=== PATIENT | female | born 1990 | race Caucasian/White ===

== ENCOUNTER 2021-05-19 16:44 | Inpatient (IN) | payer SELFPAY ==
[2021-05-19] MEDS ORDERED: ONDANSETRON 4 MG/2 ML VIAL ONE ×2 (17:40→19:22)
[2021-05-19] MEDS ORDERED: MORPHINE 4 MG/ML SYR ONE ×2 (17:40→19:22)
[2021-05-19] MEDS ORDERED: NA CHLORIDE 0.9% 1,000 ML ONE (17:41)
[2021-05-19 17:48] LABS: Absolute Lymphocytes (CBC) 2.1 K/uL (0.7-4.9); Basophils % 0.4 % (0-1.3); Hematocrit 39.3 % (36.0-45.0); Lymphocytes % 21.3 % (15.3-44.8); MPV 9.9 fL (7.6-11.3); RBC Red Blood Cell Count 4.86 M/uL (3.86-4.86)
[2021-05-19 17:52] LABS: Urine Blood Trace-intact (Negative); Urine Glucose Negative (Negative); Urine Protein Negative (Negative); Urine Specific Gravity >=1.030 (1.005-1.030)
[2021-05-19 17:59] LABS: ALT/SGPT 29 U/L (12-78); AST/SGOT 9 U/L (15-37); Albumin 3.5 g/dL (3.4-5.0); Alkaline Phosphatase 82 U/L (45-117); BUN Blood Urea Nitrogen 13 mg/dL (7-18); Bicarbonate 28 mmol/L (21-32); Bilirubin Direct < 0.1 mg/dL (0-0.2); Bilirubin Total 0.2 mg/dL (0.2-1.0); Glucose Level 115 mg/dL (74-106); Lipase 60 U/L (73-393); Potassium 3.4 mmol/L (3.5-5.1); Protein, Total 7.4 g/dL (6.4-8.2); Sodium Level 140 mmol/L (136-145)
[2021-05-19 19:02] LABS: Urine Bacteria >50 /HPF (<20); Urine RBC <5 /HPF (NONE SEEN)
[2021-05-19 19:03] LABS: Calcium Oxalate Crystals- Ur FEW (NONE SEEN)
--- NOTE | 2021-05-19 19:05 | RAD REPORT ---
EXAM DESCRIPTION: CT - Abdomen Pelvis W Contrast - 05/19/2021 6:38 pm CLINICAL HISTORY: ABD PAIN COMPARISON: No comparisons TECHNIQUE: Biphasic, helical CT imaging of the abdomen and pelvis was performed following 100 ml non -ionic IV contrast. No oral contrast administered. All CT scans are performed using dose optimization technique as appropriate and may include automated exposure control or mA/KV adjustment according to patient size. FINDINGS: No suspicious findings in the lung bases. The liver, spleen, and pancreas show no focal findings. Mild diffuse fatty infiltration is present in the liver with sparing near the gallbladder fossa. No gallbladder or biliary tree abnormality. Galls tones can be occult on CT imaging. Symmetric renal function is seen with no hydronephrosis or suspicious renal mass. No pyelonephritis o r acute parenchymal process. No bladder abnormalities. No adrenal abnormalities. No uterine or ovaria n suspicious finding. No dilated bowel loops or bowel wall thickening. Appendix is normal. No free air, free fluid or infla mmatory stranding. No hernia, mass or bulky lymphadenopathy. The left lower quadrant deep subcutaneo us fat abutting the abdominal wall a 2.4 centimeter rounded soft tissue mass is present. This is yuniel g the left lateral margin of the prior scar. History does not indicate pain in this locatio n. This may be scarring or suture granuloma related to the prior . There is no abdominal wal l hernia at this site. Correlation is needed with any localizing symptoms. No suspicious bony findings. IMPRESSION: Contrast enhanced CT abdomen and pelvis showing no acute or emergent finding. Mild diffuse fatty infiltration of the liver. Small round soft tissue mass left lower quadrant subcutaneous fatty tissues is at the left lateral ma rgin of the scar and is probably a postsurgical suture granuloma or area of scarring.
[2021-05-19] MEDS ORDERED: FAMOTIDINE 20 MG/2 ML VIAL IV ONE (20:06)
--- NOTE | 2021-05-19 20:44 | RAD REPORT ---
EXAM DESCRIPTION: US - Abdomen Exam Limited - 05/19/2021 8:26 pm CLINICAL HISTORY: EPIGASTRIC PAIN COMPARISON: Abdomen Pelvis W Contrast dated 05/19/2021 FINDINGS: Multiple variably sized gallstones are present. A small amount of sludge is seen. Gallblad robert wall is upper normal to minimally thickened. No pericholecystic fluid seen. No common duct stone or biliary tree dilatation identified. IMPRESSION: Multi stone cholelithiasis with gallbladder wall upper normal to slightly thickened. No biliary tree abnormality.
[2021-05-19] MEDS ORDERED: HYDROMORPHONE HCL 0.5 MG/0.5 ML INJ ONE ×2 (21:30→22:29)
--- NOTE | 2021-05-19 21:38 | ER ---
Nurse's Notes [facility] Name: Archana Carcamo Age: 31 yrs Sex: Female : 1990 Arrival Date: 05/19/2021 Time: 16:47 Bed 26 Private MD: Diagnosis: Acute cholecystitis Presentation: 05/19 16:58 Chief complaint: Patient states: pt complains of stomach pain. pt went to an er last tw2 week and ruled out cardiac related issue. pt states she had went to GI specialist but they hadn't started treatment yet. pt states the pain has gotten worse and is now 10/10. Coronavirus screen: At this time, the client does not indicate any symptoms associated with coronavirus-19. Ebola Screen: Patient negative for fever greater than or equal to 101.5 degrees Fahrenheit, and additional compatible Ebola Virus Disease symptoms Patient denies exposure to infectious person. Patient denies travel to an Ebola-affected area in the 21 days before illness onset. No symptoms or risks identified at this time. Initial Sepsis Screen: Does the patient meet any 2 criteria?. Risk Assessment: Do you want to hurt yourself or someone else? Patient reports no desire to harm self or others. Onset of symptoms was May 19, 2021. 16:58 Method Of Arrival: Ambulatory tw2 16:58 Acuity: AARTI 3 tw2 17:10 Initial Sepsis Screen: Does the patient have a suspected source of infection? No. tw2 Patient's initial sepsis screen is negative. Triage Assessment: 17:01 General: Appears comfortable, ill, Behavior is calm, cooperative, appropriate for age. tw2 Pain: Complains of pain in right upper quadrant and left upper quadrant Pain radiates to back and left chest. GI: Reports upper abdominal pain. 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 - Social history:: Smoking status: Patient reports the use of cigarette tobacco products, smokes one-half pack cigarettes per day, Patient uses alcohol, weekly. Screenin:08 Abuse screen: Denies threats or abuse. Denies injuries from another. Nutritional tw2 screening: No deficits noted. Tuberculosis screening: No symptoms or risk factors identified. Fall Risk None identified. Assessment: 17:36 General: Appears distressed, obese, well groomed, Behavior is cooperative, anxious, jh5 crying. Pain: Complains of pain in epigastric area. Neuro: Oriented to person, place, time, situation, Appropriate for age Speech is normal. Cardiovascular: No deficits noted. Capillary refill < 3 seconds Patient's skin is warm and dry. Respiratory: Airway is patent Trachea midline Respiratory effort is even, unlabored, Respiratory pattern is regular, symmetrical. GI: Bowel sounds present X 4 quads. Abd is soft Abdomen is tender to palpation. 19:27 Reassessment: Pt continues to scream, moan, and open her curtain screaming for staff. jh5 Pt says she is crying, however, there are no tears. Pt ripped off bp cuff and threw it on the ground. Pt educated on her imaging this far, and provided additional pain medication, educated we will continue care with ultrasound and someone should be by shortly. 20:16 Reassessment: Pt continues to moan, and move all around, guarding upper abdomen. Pt em states; "I'm dying!" Pt educated she is not dying and thankfully her vital signs are perfectly stable and within normal limits. Pt also updated on results so far and informed on what is next in her process here. Pt pending ultrasound at this time. Mother at bedside. Vital Signs: 17:04 BP 141 / 90; Pulse 102; Resp 18; Temp 98; Pulse Ox 100% ; Weight 113.4 kg; Height 5 ft. tw2 5 in. (165.10 cm); Pain 10/10; 19:30 Pulse 68; Resp 18; Pulse Ox 99% ; jh5 20:15 BP 136 / 88; Pulse 66; Resp 18; Pulse Ox 100% ; em 21:22 BP 134 / 86; Pulse 71; Resp 18; Pulse Ox 99% on R/A; em 17:04 Body Mass Index 41.60 (113.40 kg, 165.10 cm) tw2 ED Course: 16:47 Patient arrived in ED. as 17:01 Triage completed. tw2 17:04 Arm band placed on left wrist. tw2 17:08 Patient has correct armband on for positive identification. Bed in low position. Call tw2 light in reach. Side rails up X2. 17:09 Anthony Lantigua NP is PHCP. pm1 17:09 Juan Conde MD is Attending Physician. pm1 17:28 Archana Padgett, JACKIE is Primary Nurse. jh5 17:36 Inserted saline lock: 20 gauge in right antecubital area, using aseptic technique. jh5 17:39 Lipase Sent. jh5 17:39 Hepatic Function Sent. jh5 17:39 CBC with Diff Sent. jh5 17:39 Basic Metabolic Panel Sent. jh5 18:38 CT Abd/Pelvis - IV Contrast Only In Process Unspecified. EDMS 20:26 US Abdomen Limited In Process Unspecified. EDMS 21:37 Too King MD is Hospitalizing Provider. pm1 Administered Medications: 17:52 Drug: NS 0.9% 1000 ml Route: IV; Rate: 1000 ml; Site: right antecubital; jh5 17:52 Drug: morphine 4 mg Route: IVP; Site: right antecubital; jh5 17:52 Drug: Zofran (Ondansetron) 4 mg Route: IVP; Site: right antecubital; jh5 19:26 Drug: morphine 4 mg Route: IVP; Site: right antecubital; jh5 19:27 Drug: Zofran (Ondansetron) 4 mg Route: IVP; Site: right antecubital; jh5 20:14 Drug: Pepcid (famotidine) 20 mg Route: IVP; Site: right antecubital; em 21:35 Drug: Dilaudid (HYDROmorphone) 0.5 mg Route: IVP; Site: right antecubital; em 21:56 Follow up: Response: No adverse reaction; Marked relief of symptoms; Pain is decreased em 21:56 Drug: Mefoxin (cefOXitin) 1 grams Route: IVPB; Infused Over: 30 mins; Site: right em antecubital; 22:33 Follow up: IV Status: Completed infusion; IV Intake: 50ml em 22:31 Drug: Dilaudid (HYDROmorphone) 0.5 mg Route: IVP; Site: right antecubital; em 05/20 01:35 Drug: fentaNYL (PF) 25 mcg Route: IVP; Site: right antecubital; em Intake: 05/19 22:33 IV: 50ml; Total: 50ml. em Outcome: 21:37 Decision to Hospitalize by Provider. pm1 05/20 20:31 Patient left the ED. bb Signatures: Dispatcher [employer] Ankush Riddle, RN RN em Marian Wesley Brenda RN RN bb Anthony Lantigua, CAROLYN POULTRY CLEANER pm1 Tiesha Vides RN RN tw2 Archana Padgett RN RN jh5
--- NOTE | 2021-05-19 21:38 | EDPHYS ---
Physician Documentation [facility] Name: Archana Carcamo Age: 31 yrs Sex: Female : 1990 Arrival Date: 05/19/2021 Time: 16:47 Bed 26 Private MD: ED Physician Juan Conde HPI: 05/19 17:58 This 31 yrs old Female presents to ER via Ambulatory with complaints of pm1 Abdominal Pain. 17:58 The patient presents with abdominal pain in the upper abdomen. pm1 17:58 Onset: The symptoms/episode began/occurred 1 month(s) ago. The symptoms do not radiate. pm1 Associated signs and symptoms: Pertinent negatives: nausea and vomiting, chest pain, diarrhea, dysuria, fever, shortness of breath. The symptoms are described as sharp. Modifying factors: the symptoms are aggravated by food. Severity of pain: in the emergency department the pain is actually worse. The patient has not experienced similar symptoms in the past. The patient has been recently seen by a physician: He was seen in the [facility] last week for same complaint and patient had blood work EKG and chest x-ray. She was discharged to follow-up with GI. Patient saw Dr. Rivera today for evaluation of her abdominal pain. Patient was given orders for outpatient imaging. Patient reports imaging will be done towards the end of the month and she felt she could not wait until then due to the severity of her pain. 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 - Social history:: Smoking status: Patient reports the use of cigarette tobacco products, smokes one-half pack cigarettes per day, Patient uses alcohol, weekly. ROS: 17:58 Constitutional: Negative for fever, chills, and weight loss, Cardiovascular: Negative pm1 for chest pain, palpitations, and edema, Respiratory: Negative for shortness of breath, cough, wheezing, and pleuritic chest pain. 17:58 Back: Negative for injury and pain, MS/Extremity: Negative for injury and deformity, Skin: Negative for injury, rash, and discoloration, Neuro: Negative for headache, weakness, numbness, tingling, and seizure. 17:58 Abdomen/GI: Positive for abdominal pain, Negative for nausea, vomiting, and diarrhea, constipation. Exam: 17:58 Constitutional: This is a well developed, well nourished patient who is awake, alert, pm1 and in no acute distress. Head/Face: Normocephalic, atraumatic. 17:58 Back: No spinal tenderness. No costovertebral tenderness. Full range of motion. Skin: Warm, dry with normal turgor. Normal color with no rashes, no lesions, and no evidence of cellulitis. MS/ Extremity: Pulses equal, no cyanosis. Neurovascular intact. Full, normal range of motion. 17:58 ENT: Exam is negative for acute changes, Mouth: Lips: normal, moist, Oral mucosa: normal, pink and intact, moist. 17:58 Cardiovascular: Exam negative for acute changes, Rate: normal, Rhythm: regular, Pulses: no pulse deficits are appreciated. 17:58 Respiratory: Exam negative for acute changes, respiratory distress, shortness of breath, Breath sounds: are clear throughout. 17:58 Abdomen/GI: Inspection: obese Palpation: soft, in all quadrants, mild abdominal tenderness, in the epigastric area. 17:58 Neuro: Exam negative for acute changes, Orientation: is normal, Mentation: is normal, Motor: moves all fours. Vital Signs: 17:04 BP 141 / 90; Pulse 102; Resp 18; Temp 98; Pulse Ox 100% ; Weight 113.4 kg; Height 5 ft. tw2 5 in. (165.10 cm); Pain 10/10; 19:30 Pulse 68; Resp 18; Pulse Ox 99% ; jh5 20:15 BP 136 / 88; Pulse 66; Resp 18; Pulse Ox 100% ; em 21:22 BP 134 / 86; Pulse 71; Resp 18; Pulse Ox 99% on R/A; em 17:04 Body Mass Index 41.60 (113.40 kg, 165.10 cm) tw2 MDM: 17:18 Patient medically screened. pm1 21:03 Counseling: I had a detailed discussion with the patient and/or guardian regarding: the pm1 historical points, exam findings, and any diagnostic results supporting the discharge/admit diagnosis, lab results, radiology results, the need for further work-up and treatment in the hospital. 21:34 Data reviewed: vital signs. Data interpreted: Pulse oximetry: on room air is 99 %. pm1 Interpretation: normal. 05/19 17:18 Order name: Basic Metabolic Panel; Complete Time: 18:26 pm1 05/19 17:18 Order name: CBC with Diff; Complete Time: 17:52 pm1 05/19 17:18 Order name: Hepatic Function; Complete Time: 18:26 pm1 05/19 17:18 Order name: Lipase; Complete Time: 18:26 pm1 05/19 17:51 Order name: Urine Dipstick-Ancillary; Complete Time: 17:54 EDMN 05/19 17:51 Order name: Urine Microscopic Only; Complete Time: 19:20 pm1 05/19 21:28 Order name: SARS-COV-2 RT PCR; Complete Time: 00:10 EDMN 05/19 22:33 Order name: Basic Metabolic Panel EDMN 05/19 22:33 Order name: Basic Metabolic Panel EDMN 05/19 22:33 Order name: CBC with Automated Diff EDMN 05/19 22:33 Order name: CBC with Automated Diff EDMN 05/19 22:33 Order name: Lipase EDMN 05/19 22:33 Order name: Lipase EDMN 05/19 17:36 Order name: CT Abd/Pelvis - IV Contrast Only; Complete Time: 19:20 pm1 05/19 19:21 Order name: US Abdomen Limited; Complete Time: 20:47 pm1 05/19 22:33 Order name: Liver (Hepatic) Function EDMN 05/19 22:33 Order name: Liver (Hepatic) Function EDMN 05/20 15:46 Order name: Urine --Ancillary (enter results) [facility] 05/20 16:43 Order name: Urine --Ancillary EDMN 05/19 17:18 Order name: IV Saline Lock; Complete Time: 17:36 pm1 05/19 17:18 Order name: Labs collected and sent; Complete Time: 17:36 pm1 05/19 17:36 Order name: Urine Dipstick-Ancillary (obtain specimen); Complete Time: 17:52 pm1 05/19 17:36 Order name: Urine Test (obtain specimen); Complete Time: 17:52 pm1 05/19 22:33 Order name: NPO EDMS Administered Medications: 17:52 Drug: NS 0.9% 1000 ml Route: IV; Rate: 1000 ml; Site: right antecubital; 5 17:52 Drug: morphine 4 mg Route: IVP; Site: right antecubital; 5 17:52 Drug: Zofran (Ondansetron) 4 mg Route: IVP; Site: right antecubital; 5 19:26 Drug: morphine 4 mg Route: IVP; Site: right antecubital; 5 19:27 Drug: Zofran (Ondansetron) 4 mg Route: IVP; Site: right antecubital; 5 20:14 Drug: Pepcid (famotidine) 20 mg Route: IVP; Site: right antecubital; em 21:35 Drug: Dilaudid (HYDROmorphone) 0.5 mg Route: IVP; Site: right antecubital; em 21:56 Follow up: Response: No adverse reaction; Marked relief of symptoms; Pain is decreased em 21:56 Drug: Mefoxin (cefOXitin) 1 grams Route: IVPB; Infused Over: 30 mins; Site: right em antecubital; 22:33 Follow up: IV Status: Completed infusion; IV Intake: 50ml em 22:31 Drug: Dilaudid (HYDROmorphone) 0.5 mg Route: IVP; Site: right antecubital; em 1116 01:35 Drug: fentaNYL (PF) 25 mcg Route: IVP; Site: right antecubital; em Disposition: 07:06 Co-signature as Attending Physician, Juan Conde MD I agree with the assessment and rn plan of care. Attestation: The patient's history, exam findings, diagnostics, and a summary of any interventions or procedures was reviewed in detail with Anthony Lantigua NP. Disposition Summary: 05/19/21 21:37 Hospitalization Ordered Hospitalization Status: Inpatient Admission pm1 Provider: Too King pmKelechi Condition: Stable pm1 Problem: new pm1 Symptoms: have improved pm1 Bed/Room Type: Standard pm1 Location: Telemetry/MedSurg (Inpatient)(05/20/21 19:30) cg Room Assignment: 422(05/20/21 20:24) cg Diagnosis - Acute cholecystitis pm1 Discharge Instructions: - Discharge Summary Sheet [facility] Forms: - Medication Reconciliation Form pm1 - SBAR form jh5 Signatures: Dispatcher [employer] EDMS Ankush Pan, RN RN Juan Santacruz MD MD rn Garcia, Cindy, RN RN Anthony Lantigua, LONG TERM ACUTE CARE REGISTERED NURSE LONG TERM ACUTE CARE REGISTERED NURSE pm1 Tiesha Vides RN RN 2 Hollie Hoang kj1 Archana Padgett RN RN 5 Corrections: (The following items were deleted from the chart) 05/19 21:28 21:15 CORONAVIRUS+MR.LAB.BRZ ordered. [facility] 22:03 21:37 Telemetry/MedSurg (Inpatient) pm1 cg 22:03 21:37 pm1 05/20 15:46 15:45 Urine Test ordered. kj1 kj1 19:30 05/19 22:03 [facility] ER HOLD cg cg 05/20 19:30 05/19 22:03 ERHOLD- cg 05/20 20:24 19:30 423 cg
[2021-05-19] MEDS ORDERED: CEFOXITIN SODIUM 1 GM/VIAL ONE (21:50)
[2021-05-19] MEDS ORDERED: NA CHLORIDE 0.9% 100 ML ONE (21:50)
[2021-05-20] MEDS ORDERED: NS 0.9% IV SCH ×2
[2021-05-20] MEDS ORDERED: NOREPINEPHRINE IV SCH ×2
[2021-05-20] MEDS: D5 0.45 NS 1,000 ML IV SCH ×4 (00:42→21:46)
[2021-05-20 01:16] VITALS: BMI 41.5
[2021-05-20] MEDS ORDERED: FENTANYL CITR 100 MCG/2 ML ONE ×6 (01:20→18:52)
[2021-05-20] MEDS ORDERED: FENTANYL CITR 100 MCG/2 ML IV ONE (01:24)
[2021-05-20] MEDS ORDERED: CEFOXITIN SODIUM 1 GM/VIAL IVPB SCH (04:00)
[2021-05-20] MEDS ORDERED: CEFOXITIN/NS 1gm 1 GM/50 ML BAG IV SCH (04:00)
[2021-05-20 04:13] LABS: Absolute Lymphocytes (CBC) 1.2 K/uL (0.7-4.9); Basophils % 0.4 % (0-1.3); Lymphocytes % 7.5 % (15.3-44.8); MPV 10.2 fL (7.6-11.3); RBC Red Blood Cell Count 4.64 M/uL (3.86-4.86)
[2021-05-20] MEDS ORDERED: CEFOXITIN SODIUM 1 GM/VIAL ONE (05:09)
[2021-05-20] MEDS ORDERED: NA CHLORIDE 0.9% 50 ML ONE (05:10)
[2021-05-20 05:12] LABS: ALT/SGPT 25 U/L (12-78); AST/SGOT 7 U/L (15-37); Albumin 3.2 g/dL (3.4-5.0); Alkaline Phosphatase 79 U/L (45-117); BUN Blood Urea Nitrogen 7 mg/dL (7-18); Bicarbonate 27 mmol/L (21-32); Bilirubin Direct 0.1 mg/dL (0-0.2); Bilirubin Total 0.4 mg/dL (0.2-1.0); Glucose Level 133 mg/dL (74-106); Lipase 49 U/L (73-393); Potassium 4.1 mmol/L (3.5-5.1); Sodium Level 139 mmol/L (136-145)
[2021-05-20] MEDS: FENTANYL CITR 100 MCG/2 ML IV PRN ×3 (05:20→14:48)
[2021-05-20] MEDS ORDERED: ONDANSETRON 4 MG/2 ML VIAL ONE ×3 (07:56→18:50)
[2021-05-20] MEDS ORDERED: MORPHINE 4 MG/ML SYR ONE ×2 (07:56→11:46)
[2021-05-20] MEDS: MORPHINE 4 MG/ML SYR IV PRN ×2 (07:57→11:48)
[2021-05-20] MEDS: ONDANSETRON 4 MG/2 ML VIAL IV PRN ×2 (07:57→14:48)
[2021-05-20] MEDS ORDERED: D5 0.45 NS 1,000 ML IV ONE (09:39)
[2021-05-20] MEDS: CEFOXITIN/NS 1gm 1 GM/50 ML BAG IV SCH ×3 (11:06→18:00)
[2021-05-20] MEDS ORDERED: Ringers Lactate 1,000 ML IV ONE (16:16)
[2021-05-20] MEDS ORDERED: ROCURONIUM 50 MG/5 ML VIAL IV ONE (18:03)
[2021-05-20] MEDS ORDERED: propofoL 200 MG/20 ML VIAL IV ONE (18:03)
[2021-05-20] MEDS ORDERED: LIDOCAINE 1% MPF 5 ML VIAL ONE (18:03)
[2021-05-20] MEDS ORDERED: Phenylephrine HCl 10 MG/ML 1 ML VIAL ONE (18:07)
[2021-05-20] MEDS ORDERED: NA CHLORIDE 0.9% 250 ML ONE (18:11)
--- NOTE | 2021-05-20 18:23 | P.HP ---
Date of Service: 05/20/21 PC: This 31-year-old female presented to the emergency room with severe right upper quadrant abdominal pain for diagnosis and treatment. HPC: Patient had one prior visit to the emergency room. Was just having an outpatient work-up for right upper quadrant abdominal pain were gallbladder disease was suspected. Her pain became so severe she came to the emergency room where an ultrasound is found she has acute cholecystitis. PSHx: , ligation of fallopian tubes PMHx: Morbid obesity, takes phentermine also has endometriosis, and a trauma of her intra-abdominal wall Social Hx: No known allergies Sys R: No cough, wheeze, shortness of breath. No chest pain or palpitations. Denies any urinary complaints O/E: Vital signs are stable, obviously uncomfortable HEENT: Nonicteric Chest: Chest movement equal bilaterally Abd: Tender in the right upper quadrant [place]: Intact Data: Has acute on chronic cholecystitis with cholelithiasis Impression: Cholecystitis with cholelithiasis, biliary colic Plan: I will take her to the operating for laparoscopic possible open cholecystectomy with a cholangiogram. The risks of this procedure have been discussed. The possibility of bleeding, infection, injury to bile ducts blood vessels and intestines has been described. The possible need for an open and/or further surgeries and procedures was discussed. She understands and wants us to proceed.
[2021-05-20] MEDS ORDERED: dexAMETHasone 10 MG/ML VIAL ONE (18:32)
[2021-05-20] MEDS ORDERED: KETOROLAC 30 MG/ML INJ ONE (18:32)
[2021-05-20] MEDS ORDERED: GLYCOPYRROLATE 0.2 MG/ML SYR ONE (19:10)
[2021-05-20] MEDS ORDERED: NEOSTIGMINE 1 MG/ML -5 ML ONE (19:10)
[2021-05-20] MEDS: Ringers Lactate 1,000 ML IV ONE ×3 (19:12→19:41)
--- NOTE | 2021-05-20 20:27 | P.OP ---
Preoperative diagnosis: Acute on chronic cholecystitis with cholelithiasis Postoperative diagnosis: The same with hydrops of the gallbladder Primary procedure: Laparoscopic cholecystectomy Secondary procedure: Cholangiogram Anesthesia: General Estimated blood loss: Less than 10 cc Specimen: 1 gallbladder and contents Operative Technique: The patient brought the operating room placed supine on the table. After the induction of adequate general endotracheal anesthesia, the area of the abdomen was prepped with a DuraPrep solution, she was draped in usual aseptic manner. A subumbilical incision was made. This was brought down through the skin and subcutaneous tissue. The Visiport was used to enter the peritoneal cavity and created pneumoperitoneum to approximately 12 mmHg. Under direct vision a 5 mm trocar was placed in the upper midline and 2 other 5 mm trochars on the right lateral side of the abdominal wall. We were now able to visualize the right upper quadrant. We could see there was a marked inflammatory response in that area. The omentum was stuck to the gallbladder with some fibrinous exudate. This was gently peeled off the gallbladder. The gallbladder was noted be markedly distended with an edematous wall. A needle aspirator was placed into the gallbladder to decompress it so as we could place a grasper on the fundus. Another grasper was placed by the Guzman's pouch. Applying lateral traction we were able to open the peritoneal coverings over the cystic duct and artery. The cystic duct was now identified. A clip was placed between the gallbladder and the cystic duct. An opening was made into the cystic duct through which we obtained a cholangiogram. The cholangiogram showed good demonstration of the extrahepatic biliary tree, no filling defects were noted, the catheter was now removed. A clip was placed across the distal portion of the cystic duct. This part of the cystic duct was edematous and I was not happy with the way it was stented. Hence a chromic tie was used to also ligate the distal portion of the cystic remnant. The cystic artery was clipped and divided in the usual manner. The gallbladder was dissected free from the liver bed and brought out through the umbilical trocar site. At this point attention was turned back towards the right upper quadrant. The area was gently irrigated and the irrigating fluid was removed from the peritoneal cavity. Attention was turned back towards the umbilicus. The umbilical trocar site was approximated using 2 interrupted sutures of Prolene. At this point the abdomen was inspected to ensure adequate hemostasis. 1 small adhesion down to the pelvis to the patient's previous scar was gently teased to remove it from the anterior abdominal wall. There is a vascular connection to the anterior abdominal wall on the right side. We did not trace or interfere with this area as the patient's prior to today was to get rid of her gallbladder. At this point the trochars removed, the pneumoperitoneum was collapsed, and fadumo were applied to the skin. She was stable was sent to the recovery room. Needle sponge instrument count were correct. No drains were placed. Complications: None Transferred to: Recovery Room Condition: Good
[2021-05-20] MEDS: HYDROMORPHONE HCL 1 MG/ML INJ ONE ×2 (20:28→20:50)
[2021-05-20] MEDS ORDERED: MORPHINE 4 MG/ML SYR IV PRN (20:46)
[2021-05-20] MEDS ORDERED: ONDANSETRON 4 MG/2 ML VIAL IV PRN (20:46)
[2021-05-20 20:54] VITALS: O2SAT 97
--- NOTE | 2021-05-20 22:03 | RAD REPORT ---
EXAM DESCRIPTION: RAD - Cholangiogram Oper-Xray Or - 05/20/2021 9:04 pm CLINICAL HISTORY: LAP KAREN COMPARISON: Abdomen Exam Limited dated 05/19/2021; Abdomen Pelvis W Contrast dated 05/19/2021 FINDINGS/IMPRESSION: Five intraoperative fluoroscopic images were submitted. Total fluoroscopy time is 0.1 minutes. No biliary ductal dilatation identified. No common bile duct stones are seen. Contrast can be seen wi thin the small bowel.
[2021-05-21] MEDS ORDERED: NA CHLORIDE 0.9% 50 ML ONE ×2 (00:30→06:45)
[2021-05-21] MEDS ORDERED: CEFOXITIN SODIUM 1 GM/VIAL ONE ×2 (00:34→07:19)
[2021-05-21] MEDS: HYDROCODONE/APAP 7.5/325 MG TAB PO PRN ×3 (03:24→15:28)
[2021-05-21] MEDS: CEFOXITIN/NS 1gm 1 GM/50 ML BAG IV SCH ×3 (06:00→11:37)
[2021-05-21] MEDS: D5 0.45 NS 1,000 ML IV SCH (07:00)
[2021-05-21 11:59] VITALS: BP 138/84; TEMP 97.1
--- NOTE | 2021-05-21 14:08 | P.DS ---
Admission Date: 05/19/21 Discharge Date: 05/21/21 Disposition: ROUTINE DISCHARGE Discharge Condition: GOOD Reason for Admission: Acute postop abdominal pain Procedures: Laparoscopic cholecystectomy with cholangiogram Brief History of Present Illness: Patient presented to the emergency room with severe right upper quadrant abdominal pain, for diagnosis and treatment. Hospital Course: Patient was found to have acute on chronic cholecystitis with cholelithiasis. She was brought to the operating where she underwent a laparoscopic cholecystectomy with a cholangiogram. She tolerated this procedure well. She was admitted postoperatively for observation and pain control. Today she is up ambulating, tolerating diet, her pain is controlled on oral medication. She is deemed fit for discharge Vital Signs/Physical Exam: Temp Pulse Resp BP Pulse Ox 97.1 F 78 14 138/84 99 05/21/21 11:56 05/21/21 11:56 05/21/21 11:56 05/21/21 11:56 05/21/21 11:56 Laboratory Data at Discharge: WBC 16.70 K/uL (4.3-10.9) H D 05/20/21 03:56 Hgb 12.1 g/dL (12.0-15.0) 05/20/21 03:56 Hct 38.0 % (36.0-45.0) 05/20/21 03:56 Plt Count 182 K/uL (152-406) 05/20/21 03:56 Sodium 139 mmol/L (136-145) 05/20/21 03:56 Potassium 4.1 mmol/L (3.5-5.1) 05/20/21 03:56 BUN 7 mg/dL (7-18) 05/20/21 03:56 Creatinine 0.67 mg/dL (0.55-1.3) 05/20/21 03:56 Glucose 133 mg/dL (74-106) H 05/20/21 03:56 Total Bilirubin 0.4 mg/dL (0.2-1.0) 05/20/21 03:56 AST 7 U/L (15-37) L 05/20/21 03:56 ALT 25 U/L (12-78) 05/20/21 03:56 Alkaline Phosphatase 79 U/L (45-117) 05/20/21 03:56 Lipase 49 U/L (73-393) L 05/20/21 03:56 Imagings Data: Negative cholangiogram Home Medications: Dicyclomine [Bentyl] 20 mg PO Q6HR PRN 05/19/21 Phentermine HCl 37.5 mg PO DAILY 05/19/21 Codeine/APAP [Tylenol W/Codeine #3 tab] 2 tab PO Q6HP PRN 05/20/21 Famotidine [Pepcid] 20 mg PO DAILY 05/20/21 Ibuprofen 800 mg PO Q6HP PRN 05/20/21 Diet: Regular Activity: Ad rosa m Followup: NONE,NONE [Primary Care Provider] -
== END 2021-05-21 15:30 | disposition home or self-care (01) | DRG 418 ==
LOC: ER 16:44 → ERHOLD 22:11 → 4TH 05-20 20:34
PROVIDERS: ADMIT Surgery; ATTEND Surgery
PROC: BF00YZZ Plain Radiography of Bile Ducts using Other Contrast (ICD-10-PCS; 2021-05-20)
PROC: 0FT44ZZ Resection of Gallbladder, Percutaneous Endoscopic Approach (ICD-10-PCS; principal; 2021-05-20 16:00)
DX: K80.12 Calculus of gallbladder with acute and chronic cholecystitis without obstruction (principal); K82.1 Hydrops of gallbladder; Z68.41 Body mass index [BMI] 40.0-44.9, adult; Z20.822 Contact with and (suspected) exposure to COVID-19; E66.01 Morbid (severe) obesity due to excess calories
CPT/HCPCS: 36415; 74177; 74300; 76705; 80048; 80076; 81003; 81015; 81025; 83690; 85025; 88304; 96365; 96375; 99284; J0694; J1100; J1170; J2370; J2405; J2704; J2710; J3010; J7030; J7050; J7120; J7799; Q9967; U0003